=== PATIENT | male | born 1990 | race American Indian/Alaskan Native ===

== ENCOUNTER 2019-03-14 09:02 | Emergency (ER) | payer SELFPAY ==
[2019-03-14 09:21] VITALS: BP 148/86
--- NOTE | 2019-03-14 09:25 | Emergency Department Report ---
Chief Complaint: Urogenital-Male Stated Complaint: PELVIC PAIN Time Seen by Provider: 03/14/19 09:22 - HPI History of Present Illness: 28 y/o male comes in for a 9 year history history of groin discomfort. - Exam Vital Signs: Vital Signs 03/14/19 09:19 Temperature 98.3 F Pulse Rate 76 Respiratory 20 Rate Blood Pressure 148/86 O2 Sat by Pulse 100 Oximetry Physical Exam: AxO NAD. Normal gait. No SI/HI. MSE screening note: Focused history and physical exam performed. Due to findings the following was ordered: ED Disposition for MSE Condition: Stable
== END 2019-03-14 11:27 | disposition left against medical advice (07) ==
LOC: ED 09:02
DX: R10.2 Pelvic and perineal pain (principal); Z53.21 Procedure and treatment not carried out due to patient leaving prior to being seen by health care provider